=== PATIENT | male | born 1940 | race Caucasian/White ===

== ENCOUNTER 2022-05-01 05:40 | Observation (INO) ==
[2022-05-01 06:14] LABS: Basophils % 0.1 % (0.0-0.8); Eosinophils # 0.1 10*3/uL (0.0-0.87); Eosinophils % 1.8 % (0.00-10.9); Hematocrit 33.8 VOL% (42.0-52.0); Hemoglobin 10.9 GM/DL (14.0-18.0); Immature Granulocytes % 0.3 %; Immature Granulocytes Absolute 0.02 #; Lymphocytes # 1.3 10*3/uL (1.4-4.0); Lymphocytes % 16.8 % (21.2-54.2); Mean Corpuscular HGB Conc 32.2 GM/DL (32-36); Mean Corpuscular Volume 85.4 FL (87-102); Mean Platelet Volume 9.1 FL (9.6-12.0); Monocytes # 0.5 10*3/uL (0.11-0.8); Monocytes % 7.1 % (1.7-12.7); Neutrophils % 73.9 % (38.7-73.9); Platelet Count 232 T/CUMM (130-400); Red Blood Count 3.96 MC/CUMM (3.8-5.5); Red Cell Distribution Width 13.2 % (9.3-17.3); White Blood Count 7.6 T/CUMM (4-12)
[2022-05-01 06:40] LABS: Albumin 3.5 G/DL (3.4-5.0); Bilirubin,Total 0.7 MG/DL (0.20-1.00); Calcium 9.1 MG/DL (8.5-10.1); Osmolality,Calculated 284.5 MOS/KG (273-304); Total Protein 6.4 G/DL (6.4-8.2)
[2022-05-01] MEDS ORDERED: CALCIUM CARBONATE CHEW 500 MG TABLET PO PRN (11:07)
[2022-05-01] MEDS ORDERED: SIMETHICONE CHEW 125 MG TABLET PO PRN (11:07)
[2022-05-01] MEDS ORDERED: ONDANSETRON 4 MG/2 ML VIAL IV PRN (11:07)
[2022-05-01] MEDS ORDERED: ACETAMINOPHEN 325 MG TABLET PO PRN (11:07)
[2022-05-01] MEDS ORDERED: ALUMINUM/MAGNES/SIMETH MAX STR 30 ML UDCUP PO PRN (11:07)
[2022-05-01] MEDS ORDERED: DOCUSATE SODIUM 100 MG CAPSULE PO PRN (11:07)
[2022-05-01] MEDS ORDERED: LACTULOSE 20 GM/30 ML UDCUP PO PRN (11:07)
[2022-05-01] MEDS ORDERED: GLUCAGON 1 MG VIAL IM PRN (11:09)
[2022-05-01] MEDS ORDERED: DEXTROSE 10% 250 ML BAG IV PRN (11:09)
[2022-05-01] MEDS: INSULIN LISPRO 100 UNIT/ML SUBCUT SCH ×3 (11:26→21:48)
[2022-05-01] MEDS ORDERED: ENOXAPARIN 40 MG/0.4 ML SYRINGE SUBCUT SCH (11:30)
[2022-05-01] MEDS ORDERED: LATANOPROST 0.005% BOTH EYES SCH (21:00)
[2022-05-01] MEDS: carvediloL 6.25 MG TABLET PO SCH (21:47)
[2022-05-01] MEDS: DORZOLAMIDE TIMOLOL BOTH EYES SCH (21:48)
[2022-05-01] MEDS: [UNRECOGNIZED DRUG - OTHER] BOTH EYES SCH (21:48)
[2022-05-02 06:01] LABS: Basophils % 0.3 % (0.0-0.8); Eosinophils # 0.2 10*3/uL (0.0-0.87); Eosinophils % 2.7 % (0.00-10.9); Hematocrit 35.6 VOL% (42.0-52.0); Hemoglobin 11.5 GM/DL (14.0-18.0); Immature Granulocytes % 0.5 %; Immature Granulocytes Absolute 0.03 #; Lymphocytes # 1.3 10*3/uL (1.4-4.0); Lymphocytes % 22.7 % (21.2-54.2); Mean Corpuscular HGB Conc 32.3 GM/DL (32-36); Mean Corpuscular Volume 85.8 FL (87-102); Mean Platelet Volume 9.4 FL (9.6-12.0); Monocytes # 0.7 10*3/uL (0.11-0.8); Monocytes % 11.5 % (1.7-12.7); Neutrophils % 62.3 % (38.7-73.9); Platelet Count 233 T/CUMM (130-400); Red Blood Count 4.15 MC/CUMM (3.8-5.5); Red Cell Distribution Width 13.3 % (9.3-17.3); White Blood Count 5.8 T/CUMM (4-12)
[2022-05-02 06:27] LABS: Alanine Aminotransferase 15 U/L (16-61); Albumin 3.3 G/DL (3.4-5.0); Alkaline Phosphatase 110 U/L (45-117); Aspartate Amino Transferase 9 U/L (0-37); Blood Urea Nitrogen 21 MG/DL (7-18); Calcium 8.9 MG/DL (8.5-10.1); Carbon Dioxide 27 MMOL/L (21-32); Chloride 105 MMOL/L (98-107); Cholesterol 86 MG/DL (50-200); Glucose 113 MG/DL (74-106); HDL Cholesterol 58 MG/DL (40-60); Osmolality,Calculated 278.7 MOS/KG (273-304); Potassium 4.3 MMOL/L (3.5-5.1); Risk Ratio 1.48; Sodium 138 MMOL/L (136-145); Thyroid Stimulating Hormone 0.718 uIU/ml (0.358-3.74); Total Protein 6.7 G/DL (6.4-8.2); Triglycerides 43 MG/DL (2-150); VLDL Cholesterol 8.6 MG/DL
[2022-05-02] MEDS: INSULIN LISPRO 100 UNIT/ML SUBCUT SCH (07:42)
[2022-05-02] MEDS: carvediloL 6.25 MG TABLET PO SCH (09:00)
[2022-05-02] MEDS ORDERED: ATORVASTATIN 20 MG TABLET PO SCH (09:00)
[2022-05-02] MEDS ORDERED: LOSARTAN/HCTZ 50-12.5 MG TABLET PO SCH (09:00)
[2022-05-02] MEDS ORDERED: ASPIRIN EC 81 MG TABLET PO SCH (09:00)
[2022-05-02] MEDS ORDERED: PANTOPRAZOLE 40 MG TABLET PO SCH (09:00)
[2022-05-02] MEDS ORDERED: amLODIPine 10 MG TABLET PO SCH (09:00)
[2022-05-02 09:01] VITALS: BP 140/54
[2022-05-02] MEDS: DORZOLAMIDE TIMOLOL BOTH EYES SCH (09:02)
[2022-05-02] MEDS: [UNRECOGNIZED DRUG - OTHER] BOTH EYES SCH (09:02)
== END 2022-05-02 11:01 | disposition home or self-care (01) ==
LOC: N.ED 05:40 → N.EDINP 05:40 → N.2W 12:30
PROVIDERS: ADMIT Internal Medicine Cardiovascular Disease; ATTEND Internal Medicine Cardiovascular Disease